=== PATIENT | female | born 1960 | race Caucasian/White ===

== ENCOUNTER 2021-02-23 13:46 | Outpatient (CLI) | payer OTHER, SELFPAY ==
[2021-02-23 14:00] VITALS: BP 146/94; PULSE 62; RESP 16; TEMP 36.9; O2SAT 97; BMI 29.9
[2021-02-23 14:35] VITALS: BP 153/93; PULSE 83; RESP 17; TEMP 37; O2SAT 95
[2021-02-23 15:35] VITALS: BP 148/86; PULSE 82; RESP 16; TEMP 37.1; O2SAT 95
--- NOTE | 2021-03-02 18:32 | PC.SOCIAL ---
10-1, 1652 antibody infusion follow up call, unable to reach patient.
== END 2021-02-23 13:47 | disposition home or self-care (01) ==
LOC: OPS 13:51
PROVIDERS: PCP Nurse Practitioner Family; Visit Provider Nurse Practitioner Family
DX: U07.1 COVID-19 (principal); R05 Cough; R51.9 Headache, unspecified; R50.9 Fever, unspecified; R06.02 Shortness of breath
CPT/HCPCS: 96365